=== PATIENT | male | born 2000 | race Caucasian/White ===

== ENCOUNTER 2018-12-13 22:58 | Emergency (ER) | payer SELFPAY ==
[2018-12-13 23:05] VITALS: BP 110/80; PULSE 69; TEMP 98; BMI 28.3
--- NOTE | 2018-12-13 23:40 | PDOC ---
History of Present Illness - General Chief Complaint: Poison [place],Poison Tamara Exposure Stated Complaint: RASH Time Seen by Provider: 12/13/18 23:40 History Source: Patient Exam Limitations: No Limitations - History of Present Illness Initial Comments: 18 year old male with no PMH presented to ED for rash to bilateral arms x6 days. 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 Pt admitted to itching. Pt denied fever, vomiting, chest pain, shortness of breath , abdominal pain, numbness, weakness. Pt reported he has been applying Calamine lotion without relief of symptoms. ROS General: denied fever, chills, generalized weakness. HEENT: denied sore throat, rhinorrhea, ear pain. Cardiovascular: denied chest pain, palpitations, syncope, diaphoresis. Respiratory: denied shortness of breath, cough, sputum production, hemoptysis. Gastrointestinal: denied abdominal pain, nausea, vomiting, diarrhea, constipation, blood in stool. Genitourinary: denied dysuria, increased urinary frequency, hematuria, urinary incontinence, flank pain. Back: denied back pain. Musculoskeletal: denied joint pain, muscle pain, joint swelling. Neurological: denied headache, dizziness, numbness, tingling, weakness. Integumentary: admitted to rash, itching. denied laceration, abrasion. Hematologic/Lymphatic: denied bruising or bleeding. PE Constitutional: Well-nourished, Well-developed, appearing stated age. HEENT: head is normocephalic, atraumatic. EOMI. PERRLA. Neck: supple. Full ROM. Cardiovascular: regular heart rhythm. no murmurs. no pericardial friction rub. Respiratory: clear to auscultation bilaterally. no crackles, rhonchi or wheezing. no stridor. Gastrointestinal: soft, nontender. normal bowel sounds. no rebound, guarding, masses. Extremities: peripheral pulses intact. no lower extremity edema. Neurological: CN 2-12 grossly intact. moves all four extremities. Psych: awake, alert, oriented x3. follows commands. answers questions appropriately. Skin: contact dermatitis to bilateral flexor surface of lower arms, R>L - consistent with poison tamara. Past History - Past Medical History Allergies/Adverse Reactions: Allergies Allergy/AdvReac Type Severity Reaction Status Date / Time No Known Allergies Allergy Verified 12/13/18 23:03 Home Medications: Ambulatory Orders No Home Medications 0 dose .ROUTE UTDICT 09/02/13 Diphenhydramine HCl/Zinc Acet [Benadryl 2% Cream] 1 applic TP TID PRN #1 tube Hydrocortisone [Cortizone-10] 56 gm TP BID #1 cream..g. 12/13/18 Methylprednisolone [Medrol Dose Shaji] 4 mg PO ASDIR #21 tablet 12/13/18 Other medical history: NONE - Suicide/Smoking/Psychosocial Hx Smoking History: Never smoked Hx Alcohol Use: No Drug/Substance Use Hx: No Substance Use Type: None *Physical Exam - Vital Signs Last Vital Signs Temp Pulse Resp BP Pulse Ox 98 F 69 18 110/80 99 12/13/18 23:03 12/13/18 23:03 12/13/18 23:03 12/13/18 23:03 12/13/18 23:03 Medical Decision Making - Medical Decision Making 18 year old male with above PMH presented to ED for rash x6 days. Initial Vital Signs Temp Pulse Resp BP Pulse Ox 98 F 69 18 110/80 99 12/13/18 23:03 12/13/18 23:03 12/13/18 23:03 12/13/18 23:03 12/13/18 23:03 Afebrile. No tachycardia. No tachypnea. No hypotension. No hypoxia on room air. Labs ordered: none Imaging ordered: none Medications ordered: benadryl 25 mg PO once, prednisone 40 mg PO once Wound care instructions given to pt. Hydrocortisone cream and Benadryl cream sent to Pharmacy. Medrol dose pack sent to pharmacy. Pt given [facility] referral, no PCP. *DC/Admit/Observation/Transfer Diagnosis at time of Disposition: Poison tamara, Rash - Discharge Dispostion Disposition: HOME Condition at time of disposition: Stable Decision to Admit order: No - Prescriptions Prescriptions: Diphenhydramine HCl/Zinc Acet [Benadryl 2% Cream] 1 applic TP TID PRN #1 tube PRN Reason: ITCHING Hydrocortisone [Cortizone-10] 56 gm TP BID #1 cream..g. Methylprednisolone [Medrol Dose Shaji] 4 mg PO ASDIR #21 tablet - Referrals Referrals: Beto Alejandre MD [Staff Physician] - Janes Lorenz MD [Staff Physician] - - Patient Instructions Additional Instructions: Follow up with a primary care doctor within 3 days. Your care is not complete until you follow up. I have provided you with a referral to our clinic system. Call [phone] to make an appointment. Apply cream to affected areas as indicated on labels. Take medications as prescribed on labels. Take ibuprofen over the counter for pain. Take as advised on label. DO NOT SCRATCH! Return to the Emergency Department for increasing rash, vomiting, lightheadedness, chest pain, shortness of breath, or any other new, worsening or concerning symptoms. - Post Discharge Activity Forms/Work/School Notes: Back to Work
[2018-12-13] MEDS ORDERED: diphenhydrAMINE HCL 25 MG CAPSULE (FP) PO ONE ×2 (23:45→23:48)
[2018-12-13] MEDS ORDERED: predniSONE 20 MG TABLET (UD) PO ONE (23:54)
[2018-12-14] MEDS ORDERED: predniSONE 20 MG TABLET (UD) ONE (00:09)
--- NOTE | 2018-12-14 00:12 | PDOC ---
Documentation entered by Roseanne Snowden SCRIBE, acting as scribe for Vera Washington DO. Vera Washington DO: This documentation has been prepared by the Isi may Brenda, SCRIBE, under my direction and personally reviewed by me in its entirety. I confirm that the documentation accurately reflects all work, treatment, procedures, and medical decision making performed by me. Attending Attestation - Resident Resident Name: Ayaka Doll - ED Attending Attestation I have performed the following: I have examined & evaluated the patient, The case was reviewed & discussed with the resident, I agree w/resident's findings & plan, Exceptions are as noted - HPI HPI: 12/14/18 00:24 The patient is a 18 year old male, with no significant PMH who presents to the emergency department with 6 days of rash on bilateral arms. 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 H endorses itching, and has put calamine lotion to no avail. The patient denies chest pain, shortness of breath, headache and dizziness. Denies fever, chills, nausea, vomiting, diarrhea and constipation. Denies any urinary symptoms. Allergies: NKA PCP: Beto Alejandre - Physicial Exam PE: 12/14/18 00:24 GENERAL: Awake, alert, and fully oriented, in no acute distress HEAD: No signs of trauma EYES: EOMI, sclera anicteric, conjunctiva clear ENT: Moist mucosa EXTREMITIES: Normal range of motion, no edema. No clubbing or cyanosis. No cords, erythema, or tenderness, rash to b/l forearms NEUROLOGICAL: Normal speech, normal gait SKIN: (+) Contact dermatitis on bilateral forearms, consistent with poison tamara. (+) Vesicular rash in lines. Warm, Dry, normal turgor. 12/14/18 00:28 - Medical Decision Making 12/14/18 00:10 I, Dr. Vera Washington DO, attest that this document has been prepared under my direction and personally reviewed by me in its entirety. I further attest, that it accurately reflects all work, treatment, procedures and medical decision -making performed by me. 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
== END 2018-12-14 00:13 | disposition home or self-care (01) ==
LOC: JER 22:58
DX: L23.7 Allergic contact dermatitis due to plants, except food (principal); R21 Rash and other nonspecific skin eruption
CPT/HCPCS: 99281-25

== ENCOUNTER 2019-05-30 08:04 | Emergency (ER) | payer SELFPAY ==
[2019-05-30 08:12] VITALS: BP 112/62; PULSE 78; TEMP 98.2; BMI 23.0
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
== END 2019-05-30 09:05 | disposition home or self-care (01) ==
LOC: JERFT 08:04
DX: T71.193A Asphyxiation due to mechanical threat to breathing due to other causes, assault, initial encounter (principal); R23.3 Spontaneous ecchymoses; Y04.8XXA Assault by other bodily force, initial encounter; Y93.89 Activity, other specified; Y92.89 Other specified places as the place of occurrence of the external cause; Y99.0 Civilian activity done for income or pay; Y07.9 Unspecified perpetrator of maltreatment and neglect
CPT/HCPCS: 99281-25

== ENCOUNTER 2020-09-06 23:00 | Emergency (ER) | payer OTHER ==
[2020-09-06 23:09] VITALS: BP 133/68; PULSE 88; TEMP 98; BMI 25.0
[2020-09-06 23:47] LABS: METHADONE, UR NEGATIVE ng/ml (CUTOFF=300); OPIATES, URI NEGATIVE ng/ml (CUTOFF=300)
[2020-09-06 23:48] LABS: COCAINE, UR NEGATIVE ng/ml (CUTOFF=300); PHENCYCLIDINE,URINE NEGATIVE ng/ml (CUTOFF=25); URINE BARBITURATES NEGATIVE ng/ml (CUTOFF=200); URINE BENZODIAZEPINES NEGATIVE ng/ml (CUTOFF=200)
[2020-09-07 00:03] LABS: URINE AMPHETAMINES NEGATIVE ng/ml (CUTOFF=500)
[2020-09-07] MEDS ORDERED: SODIUM CHLORIDE 0.9% 500 ML INFUS.BAG IV ONE (01:50)
[2020-09-07 02:15] LABS: BASO % 0.3 % (0-2.0); HEMATOCRIT 42.5 % (35.4-49); HEMOGLOBIN 14.4 GM/dL (11.7-16.9); LYMPH % 42.7 % (8-40); MCH 29.2 pg (25.7-33.7); MCHC 33.8 g/dl (32.0-35.9); MEAN CELL VOLUME 86.5 fl (80-96); MEAN PLT VOLUME 7.4 fl (7.5-11.1); MONO % 9.5 % (3.8-10.2); NEUT % 45.5 % (42.8-82.8); PLATELET COUNT 271 K/MM3 (134-434); RBC 4.91 M/mm3 (4.00-5.60); RDW 14.4 % (11.9-15.9); WHITE BLOOD COUNT 4.8 K/mm3 (4.0-10.0)
[2020-09-07 02:27] LABS: CALCIUM 8.6 mg/dL (8.5-10.1)
[2020-09-07 02:28] LABS: ALBUMIN 4.1 g/dl (3.4-5.0); BLOOD UREA NITROGEN 8.9 mg/dL (7-18)
[2020-09-07 02:31] LABS: CREATININE 0.7 mg/dL (0.55-1.3)
[2020-09-07 02:32] LABS: BILIRUBIN,TOTAL 0.2 mg/dL (0.2-1); TOT PROT 7.2 g/dl (6.4-8.2)
== END 2020-09-07 02:33 | disposition home or self-care (01) ==
LOC: JER 23:00
DX: F12.120 Cannabis abuse with intoxication, uncomplicated (principal); F10.10 Alcohol abuse, uncomplicated
CPT/HCPCS: 36415; 80053; 80307; 85025; 93005; 93010; 99284-25

== ENCOUNTER 2021-07-28 13:38 | Emergency (ER) | payer OTHER ==
[2021-07-28 13:48] VITALS: BP 138/78; PULSE 73; TEMP 97.7; BMI 27.4
[2021-07-28] MEDS ORDERED: SODIUM CHLORIDE 0.9% 500 ML INFUS.BAG IV ONE (15:32)
[2021-07-28] MEDS ORDERED: diazePAM 5 MG TABLET PO ONE (15:32)
[2021-07-28] MEDS ORDERED: KETOROLAC TROMETHAMINE 30 MG/1 ML VIAL IVPUSH ONE (15:32)
[2021-07-28] MEDS ORDERED: diazePAM 5 MG TABLET ONE (17:12)
[2021-07-28] MEDS ORDERED: KETOROLAC TROMETHAMINE 30 MG/1 ML VIAL ONE (17:13)
[2021-07-28 18:40] LABS: BASO % 0.2 % (0-2.0); EOS % 3.1 % (0-4.5); HEMATOCRIT 40.6 % (35.4-49); HEMOGLOBIN 13.8 GM/dL (11.7-16.9); LYMPH % 16.6 % (8-40); MCH 29.2 pg (25.7-33.7); MCHC 33.9 g/dl (32.0-35.9); MEAN CELL VOLUME 86.2 fl (80-96); MEAN PLT VOLUME 8.1 fl (7.5-11.1); MONO % 7.7 % (3.8-10.2); NEUT % 72.4 % (42.8-82.8); PLATELET COUNT 237 10^3/uL (134-434); RBC 4.71 M/mm3 (4.00-5.60); RDW 14.3 % (11.9-15.9)
[2021-07-28 18:56] LABS: CHLORIDE 105 mmol/L (98-107); SODIUM 138 mmol/L (136-145)
[2021-07-28 18:59] LABS: ALBUMIN 3.9 g/dl (3.4-5.0); ANION GAP 9 MMOL/L (8-16); BLOOD UREA NITROGEN 9.2 mg/dL (7-18); CO2 25 mmol/L (21-32); GLUCOSE,RANDOM 78 mg/dL (74-106)
[2021-07-28 19:02] LABS: CREATININE 0.7 mg/dL (0.55-1.3); SGOT/AST 25 U/L (15-37); SGPT/ALT 22 U/L (13-61)
[2021-07-28 19:04] LABS: BILIRUBIN,TOTAL 0.5 mg/dL (0.2-1)
[2021-07-28 19:05] LABS: ALK PHOS 96 U/L (45-117)
[2021-07-28 21:37] LABS: URINE APPEARANCE CLEAR; URINE BILIRUBIN NEGATIVE (NEGATIVE); URINE COLOR YELLOW; URINE GLUCOSE (UA) NEGATIVE (NEGATIVE); URINE KETONE 1+ (NEGATIVE); URINE LEUK ESTERASE NEGATIVE (NEGATIVE); URINE NITRITE NEGATIVE (NEGATIVE); URINE PROTEIN NEGATIVE (NEGATIVE)
[2021-07-28 22:25] LABS: COCAINE, UR NEGATIVE (NEGATIVE); METHADONE, UR NEGATIVE (NEGATIVE); OPIATES, URI NEGATIVE (NEGATIVE); PHENCYCLIDINE,URINE NEGATIVE (NEGATIVE); URINE AMPHETAMINES NEGATIVE (NEGATIVE); URINE BARBITURATES NEGATIVE (NEGATIVE); URINE BENZODIAZEPINES POSITIVE (NEGATIVE)
== END 2021-07-28 21:05 | disposition home or self-care (01) ==
LOC: JER 13:38
PROC: 3E0333Z Introduction of Anti-inflammatory into Peripheral Vein, Percutaneous Approach (ICD-10-PCS; principal; 2021-07-28)
DX: J02.9 Acute pharyngitis, unspecified (principal)
CPT/HCPCS: 0241U-QW; 36415; 71046-TC-FY; 80053; 80307; 81003; 82550; 82553; 85025; 87651; 87807; 93005; 93010; 99283-25; C9803-CS; U0003; U0005

== ENCOUNTER 2022-10-08 04:30 | Emergency (ER) | payer OTHER ==
[2022-10-08 04:38] VITALS: BMI 22.3
[2022-10-08] MEDS ORDERED: ACETAMINOPHEN 500 MG TABLET (FP) PO ONE (04:50)
[2022-10-08] MEDS ORDERED: HALOPERIDOL LACTATE 5 MG/ML IM ONE ×2 (05:12)
[2022-10-08] MEDS ORDERED: MIDAZOLAM HCL 2 MG/2 ML SINGLE DOSE VIAL IVPUSH ONE (05:31)
[2022-10-08] MEDS ORDERED: MIDAZOLAM HCL 2 MG/2 ML SINGLE DOSE VIAL ONE (05:31)
[2022-10-08 06:54] LABS: BASO % 0.3 % (0-2.0); EOS % 0.2 % (0-4.5); HEMATOCRIT 45.1 % (35.4-49); HEMOGLOBIN 14.9 GM/dL (11.7-16.9); LYMPH % 23.9 % (8-40); MCH 29.1 pg (25.7-33.7); MEAN CELL VOLUME 88.1 fl (80-96); MEAN PLT VOLUME 8.6 fl (7.5-11.1); NEUT % 70.6 % (42.8-82.8); PLATELET COUNT 315 10^3/uL (134-434); RBC 5.12 M/mm3 (4.00-5.60); RDW 13.8 % (11.9-15.9); WHITE BLOOD COUNT 5.8 K/mm3 (4.0-10.0)
[2022-10-08 08:17] LABS: POTASSIUM 4.5 mmol/L (3.5-5.1)
[2022-10-08 08:19] LABS: CALCIUM 8.8 mg/dL (8.5-10.1)
[2022-10-08 08:20] LABS: ALBUMIN 4.2 g/dl (3.4-5.0)
[2022-10-08 08:23] LABS: CREATININE 0.8 mg/dL (0.55-1.3)
[2022-10-08 08:24] LABS: BILIRUBIN,TOTAL 0.4 mg/dL (0.2-1); TOT PROT 7.6 g/dl (6.4-8.2)
[2022-10-08 12:37] VITALS: BP 110/78; PULSE 89; RESP 19; TEMP 98.6
== END 2022-10-08 12:38 | disposition home or self-care (01) ==
LOC: JER 04:30
PROC: 3E023GC Introduction of Other Therapeutic Substance into Muscle, Percutaneous Approach (ICD-10-PCS; principal; 2022-10-08)
DX: G44.319 Acute post-traumatic headache, not intractable (principal); W01.198A Fall on same level from slipping, tripping and stumbling with subsequent striking against other object, initial encounter; Y92.9 Unspecified place or not applicable
CPT/HCPCS: 36415; 70450-TC; 72125-TC; 80053; 80307; 85025; 99284-25

== ENCOUNTER 2022-12-04 13:37 | Emergency (ER) | payer OTHER ==
[2022-12-04 13:51] VITALS: RESP 18; BMI 23.0
[2022-12-04] MEDS ORDERED: SODIUM CHLORIDE 1,000 ML IV STA (13:53)
[2022-12-04] MEDS ORDERED: ACETAMINOPHEN 1000 MG/100 ML BAG IVPB ONE (13:54)
[2022-12-04] MEDS ORDERED: ACETAMINOPHEN INJECTION 100 ML IVPB ONE (14:08)
[2022-12-04 14:27] LABS: BASO % 0.2 % (0-2.0); HEMATOCRIT 46.4 % (35.4-49); HEMOGLOBIN 15.2 GM/dL (11.7-16.9); LYMPH % 4.9 % (8-40); MCHC 32.7 g/dl (32.0-35.9); MEAN CELL VOLUME 88.5 fl (80-96); MEAN PLT VOLUME 8.5 fl (7.5-11.1); MONO % 5.5 % (3.8-10.2); NEUT % 89.4 % (42.8-82.8); PLATELET COUNT 311 10^3/uL (134-434); RBC 5.24 M/mm3 (4.00-5.60); RDW 14.7 % (11.9-15.9); WHITE BLOOD COUNT 13.4 K/mm3 (4.0-10.0)
[2022-12-04 14:38] LABS: INR 1.16 (0.83-1.09); PROTHROMBIN TIME (PATIENT) 13.4 SEC (9.7-13.0)
[2022-12-04 14:41] LABS: POTASSIUM 3.7 mmol/L (3.5-5.1)
[2022-12-04 14:43] LABS: ALBUMIN 4.4 g/dl (3.4-5.0); BLOOD UREA NITROGEN 5.7 mg/dL (7-18); CALCIUM 8.8 mg/dL (8.5-10.1)
[2022-12-04 14:46] LABS: CREATININE 0.7 mg/dL (0.55-1.3)
[2022-12-04 14:48] LABS: BILIRUBIN,TOTAL 0.6 mg/dL (0.2-1); TOT PROT 7.9 g/dl (6.4-8.2)
[2022-12-04 14:57] LABS: LACTIC ACID 2.5 mmol/L (0.4-2.0)
[2022-12-04] MEDS ORDERED: DIPHTH,PERTUSS(ACELL),TET 0.5 ML DISP.SYRIN IM ONE ×2 (15:28→16:19)
[2022-12-04] MEDS ORDERED: CEFAZOLIN 1 GM in DEXTROSE 5%-WATER - 50 ML IVPB ONE (15:29)
[2022-12-04] MEDS ORDERED: ceFAZolin SODIUM 1 GM VIAL ONE (16:18)
[2022-12-04 16:56] VITALS: BP 115/85; PULSE 81; TEMP 98.9
== END 2022-12-04 17:15 | disposition short-term general hospital (02) ==
LOC: JER 13:37
PROC: 3E03329 Introduction of Other Anti-infective into Peripheral Vein, Percutaneous Approach (ICD-10-PCS; principal; 2022-12-04)
PROC: 3E033NZ Introduction of Analgesics, Hypnotics, Sedatives into Peripheral Vein, Percutaneous Approach (ICD-10-PCS; 2022-12-04)
PROC: 3E0337Z Introduction of Electrolytic and Water Balance Substance into Peripheral Vein, Percutaneous Approach (ICD-10-PCS; 2022-12-04)
PROC: 3E0234Z Introduction of Serum, Toxoid and Vaccine into Muscle, Percutaneous Approach (ICD-10-PCS; 2022-12-04)
DX: S11.91XA Laceration without foreign body of unspecified part of neck, initial encounter (principal); S09.90XA Unspecified injury of head, initial encounter; T88.4XXA Failed or difficult intubation, initial encounter; Y04.2XXA Assault by strike against or bumped into by another person, initial encounter
CPT/HCPCS: 36415; 70450-TC; 70498-TC; 71260-TC; 72125-TC; 74177-TC; 80053; 80307; 83605; 85025; 85610; 86850; 86900; 86901; 90471; 90715; 96361; 96365; 96375; 99285-25